=== PATIENT | female | born 1940 | race African-American/Black ===

== ENCOUNTER 2022-01-25 19:29 | Inpatient (IN) | payer MEDICARE, OTHER ==
[~2022-01-25] VITALS: Ht 167.6 cm; Wt 49.9 kg
[~2022-01-25 19:29] MED LIST: albuterol
[2022-01-25] MEDS ORDERED: SODIUM CHLORIDE 0.9% 1,000 ML IV ONE (22:00)
[2022-01-25 22:07] LABS: BASOPHILS % 0.2 % (0.0-2.0); EOSINOPHILS % 0.8 % (0.0-5.0); HEMATOCRIT. 38.9 % (36.0-48.0); HEMOGLOBIN. 12.4 g/dL (12.0-16.0); LYMPHOCYTES % 16.3 % (20.0-50.0); MEAN CORPUSCULAR HEMOGLOBIN 26.8 pg (28.0-32.0); MEAN CORPUSCULAR VOLUME 84.2 fL (81.0-99.0); MEAN PLATELET VOLUME 8.7 fl (7.4-10.4); MONOCYTES % 6.9 % (2.0-8.0); NEUTROPHILS % 75.8 % (40.0-76.0); PLATELET 199 x1000/uL (130-400); RED BLOOD CELL COUNT 4.62 mill/uL (4.2-5.4); RED CELL DISTRIBUTION WIDTH 15.7 % (11.6-14.6)
[2022-01-25 22:14] LABS: CHLORIDE 110 mEq/L (98-107)
[2022-01-25] MEDS ORDERED: POTASSIUM CHLORIDE INJ 40 MEQ in DEXT 5% WATER 250 ML IV ONE (22:30)
[2022-01-25] MEDS: KCL 20MEQ/100ML X 2 FOR TOTAL KCL 40MEQ/200ML IV SCH (23:06)
[2022-01-26] VITALS (8 sets, daily range): BP systolic 70–156; BP diastolic 37–87
[2022-01-26 01:18] LABS: CLARITY URINE CLOUDY (CLEAR); COLOR URINE YELLOW (YELLOW); KETONES URINE 1+ (NEGATIVE); LEUKOCYTE ESTERASE URINE 3+ (NEGATIVE); NITRITE URINE POSITIVE (NEGATIVE); OCCULT BLOOD URINE NEGATIVE (NEGATIVE); PROTEIN URINE TRACE (NEGATIVE); SPECIFIC GRAVITY URINE 1.025 (1.005-1.030)
[2022-01-26] MEDS: KCL 20MEQ/100ML X 2 FOR TOTAL KCL 40MEQ/200ML IV SCH (01:59)
[2022-01-26] MEDS ORDERED: MIRT-118 MT (05:26)
[2022-01-26] MEDS ORDERED: INFLUENZA VACCINE 05/PF 0.5 ML SYRINGE IM ONE (05:45)
[2022-01-26] MEDS ORDERED: DOCUSATE SODIUM 100MG CAPSULE PO PRN (07:30)
[2022-01-26] MEDS ORDERED: GUAIFENESIN 200MG/10ML SUGAR FREE UDC PO PRN (07:30)
[2022-01-26] MEDS ORDERED: MAGNESIUM/ALUMINUM HYDROXIDE/SIMETHICONE 30ML UDC PO PRN (07:30)
[2022-01-26] MEDS ORDERED: ONDANSETRON HCL 4MG/2ML INJ IV PRN (07:30)
[2022-01-26] MEDS ORDERED: CLONIDINE 0.1MG TABLET PO PRN (07:30)
[2022-01-26] MEDS ORDERED: TRAMADOL 50MG TABLET PO PRN (07:30)
[2022-01-26] MEDS ORDERED: CEFTRIAXONE 1 G PREMIX 50 ML IV SCH (07:30)
[2022-01-26] MEDS ORDERED: POTASSIUM CHLORIDE 20MEQ TABLET SR PO NR (13:15)
[2022-01-26] MEDS: HALOPERIDOL LACTATE 5MG/ML VIAL IM PRN ×2 (14:04→20:53)
[2022-01-26] MEDS: DEXT 5%/0.45% NACL KCL 10MEQ/L 1,000 ML IV SCH (14:04)
[2022-01-26] MEDS: CEFTRIAXONE 1,000 MG in DEXTROSE 5% WATER 50 ML IV SCH (14:05)
[2022-01-26] MEDS: ENOXAPARIN 40MG/0.4ML SYR SUBCUT SCH (14:52)
[2022-01-26] MEDS: ACETAMINOPHEN 325MG TABLET PO PRN (14:57)
[2022-01-26] MEDS ORDERED: NALOXONE HCL 0.4MG/ML VIAL IV PRN (21:00)
[2022-01-27 05:54] LABS: BASOPHILS % 0.2 % (0.0-2.0); EOSINOPHILS % 0.6 % (0.0-5.0); HEMATOCRIT. 43.9 % (36.0-48.0); LYMPHOCYTES % 21.8 % (20.0-50.0); MEAN CORPUSCULAR HEMOGLOBIN 26.8 pg (28.0-32.0); MEAN CORPUSCULAR VOLUME 83.9 fL (81.0-99.0); MEAN PLATELET VOLUME 9.2 fl (7.4-10.4); MONOCYTES % 7.7 % (2.0-8.0); NEUTROPHILS % 69.7 % (40.0-76.0); PLATELET 173 x1000/uL (130-400); RED BLOOD CELL COUNT 5.23 mill/uL (4.2-5.4); RED CELL DISTRIBUTION WIDTH 15.6 % (11.6-14.6)
[2022-01-27 06:31] LABS: CHLORIDE 107 mEq/L (98-107)
[2022-01-27 06:48] LABS: HDL CHOLESTEROL 74 mg/dL (40-59); LDL CHOLESTEROL 130 mg/dL (5-100)
[2022-01-27 08:00] VITALS: BP 130/68
[2022-01-27] MEDS: ENOXAPARIN 40MG/0.4ML SYR SUBCUT SCH (08:50)
[2022-01-27] MEDS: CEFTRIAXONE 1,000 MG in DEXTROSE 5% WATER 50 ML IV SCH (08:51)
[2022-01-27] MEDS: DEXT 5%/0.45% NACL KCL 10MEQ/L 1,000 ML IV SCH (11:10)
[2022-01-27] MEDS: LORAZEPAM 2MG/ML CPJ IV PRN (11:53)
[2022-01-27 11:57] VITALS: BP 132/64
[2022-01-27 16:00] VITALS: BP 130/62
[2022-01-27 20:00] VITALS: BP 135/85
[2022-01-27] MEDS: QUETIAPINE FUMARATE 25MG TABLET PO SCH (21:44)
[2022-01-28] VITALS: BP 134/76
[2022-01-28] MEDS: DEXT 5%/0.45% NACL KCL 10MEQ/L 1,000 ML IV SCH ×2 (00:40→14:07)
[2022-01-28] MEDS: LORAZEPAM 2MG/ML CPJ IV PRN (02:09)
[2022-01-28 04:00] VITALS: BP 124/81
[2022-01-28 08:00] VITALS: BP 151/78
[2022-01-28] MEDS: ENOXAPARIN 40MG/0.4ML SYR SUBCUT SCH (08:51)
[2022-01-28] MEDS: QUETIAPINE FUMARATE 25MG TABLET PO SCH ×2 (08:51→21:20)
[2022-01-28] MEDS: CEFTRIAXONE 1,000 MG in DEXTROSE 5% WATER 50 ML IV SCH (08:51)
[2022-01-28 12:00] VITALS: BP 126/82
[2022-01-28 15:59] VITALS: BP 134/73
[2022-01-28] MEDS: RIVASTIGMINE 4.6 MG/24 HR TD PATCH TD SCH (21:21)
[2022-01-29] VITALS: BP 123/71
[2022-01-29] MEDS: DEXT 5%/0.45% NACL KCL 10MEQ/L 1,000 ML IV SCH ×2 (03:39→17:18)
[2022-01-29 04:00] VITALS: BP 132/70
[2022-01-29 08:20] VITALS: BP 135/71
[2022-01-29] MEDS: QUETIAPINE FUMARATE 25MG TABLET PO SCH ×2 (09:13→20:19)
[2022-01-29] MEDS: ENOXAPARIN 40MG/0.4ML SYR SUBCUT SCH (09:13)
[2022-01-29] MEDS: CEFTRIAXONE 1,000 MG in DEXTROSE 5% WATER 50 ML IV SCH (09:13)
[2022-01-29 12:00] LABS: HEMOGLOBIN 12.1 g/dL (12.0-16.0); MEAN CORPUSCULAR VOLUME 82.5 fL (81.0-99.0); RED BLOOD CELL COUNT 4.49 mill/uL (4.2-5.4); RED CELL DISTRIBUTION WIDTH 15.2 % (11.6-14.6)
[2022-01-29 12:30] VITALS: BP 108/61
[2022-01-29 12:50] LABS: CHLORIDE 105 mEq/L (98-107)
[2022-01-29 12:57] LABS: PLATELET 116 x1000/uL (130-400)
[2022-01-29 15:30] VITALS: BP 121/43
[2022-01-29 20:02] VITALS: BP 131/55
[2022-01-29] MEDS: RIVASTIGMINE 4.6 MG/24 HR TD PATCH TD SCH (20:43)
[2022-01-30] VITALS: BP 123/55
[2022-01-30] MEDS: DEXT 5%/0.45% NACL KCL 10MEQ/L 1,000 ML IV SCH (00:09)
[2022-01-30 04:01] VITALS: BP 118/51
[2022-01-30 08:06] VITALS: BP 96/57
[2022-01-30] MEDS: CEFTRIAXONE 1,000 MG in DEXTROSE 5% WATER 50 ML IV SCH (09:30)
[2022-01-30] MEDS: ENOXAPARIN 40MG/0.4ML SYR SUBCUT SCH (09:30)
[2022-01-30] MEDS: QUETIAPINE FUMARATE 25MG TABLET PO SCH ×2 (09:30→21:15)
[2022-01-30 12:30] VITALS: BP 114/65
[2022-01-30 16:20] VITALS: BP 108/75
[2022-01-30] MEDS: LORAZEPAM 2MG/ML CPJ IV PRN (18:13)
[2022-01-30 20:01] VITALS: BP 152/69
[2022-01-30] MEDS: ATORVASTATIN CALCIUM 20MG TABLET PO SCH (21:15)
[2022-01-30] MEDS: RIVASTIGMINE 4.6 MG/24 HR TD PATCH TD SCH (21:16)
[2022-01-31 00:01] VITALS: BP 125/51
[2022-01-31 04:01] VITALS: BP 132/65
[2022-01-31 08:00] VITALS: BP 153/54
[2022-01-31] MEDS: QUETIAPINE FUMARATE 25MG TABLET PO SCH ×2 (09:02→20:40)
[2022-01-31] MEDS: CEFTRIAXONE 1,000 MG in DEXTROSE 5% WATER 50 ML IV SCH (09:02)
[2022-01-31] MEDS: ENOXAPARIN 40MG/0.4ML SYR SUBCUT SCH (09:02)
[2022-01-31 12:00] VITALS: BP 130/77
[2022-01-31 16:00] VITALS: BP 115/70
[2022-01-31 20:00] VITALS: BP 127/62
[2022-01-31] MEDS: RIVASTIGMINE 4.6 MG/24 HR TD PATCH TD SCH (20:40)
[2022-01-31] MEDS: ATORVASTATIN CALCIUM 20MG TABLET PO SCH (20:40)
[2022-02-01 00:01] VITALS: BP 106/72
[2022-02-01 04:01] VITALS: BP 120/60
[2022-02-01 08:00] VITALS: BP 117/62
[2022-02-01] MEDS: ENOXAPARIN 40MG/0.4ML SYR SUBCUT SCH (10:28)
[2022-02-01] MEDS: QUETIAPINE FUMARATE 25MG TABLET PO SCH ×2 (10:29→21:40)
[2022-02-01 12:00] VITALS: BP 107/41
[2022-02-01 16:00] VITALS: BP 136/45
[2022-02-01 20:00] VITALS: BP 120/49
[2022-02-01] MEDS: HYDROXYZINE 25MG TABLET PO SCH (21:40)
[2022-02-01] MEDS: RIVASTIGMINE 4.6 MG/24 HR TD PATCH TD SCH (21:40)
[2022-02-01] MEDS: ATORVASTATIN CALCIUM 20MG TABLET PO SCH (21:40)
[2022-02-01] MEDS: ACETAMINOPHEN 325MG TABLET PO PRN (21:57)
[2022-02-02] VITALS: BP 136/43
[2022-02-02 04:00] VITALS: BP 129/50
[2022-02-02 08:19] VITALS: BP 112/44
[2022-02-02] MEDS: QUETIAPINE FUMARATE 25MG TABLET PO SCH ×2 (08:44→20:22)
[2022-02-02] MEDS: ENOXAPARIN 40MG/0.4ML SYR SUBCUT SCH (08:45)
[2022-02-02 12:00] VITALS: BP 108/85
[2022-02-02 16:23] VITALS: BP 110/59
[2022-02-02 20:00] VITALS: BP 104/61
[2022-02-02] MEDS: ATORVASTATIN CALCIUM 20MG TABLET PO SCH (20:22)
[2022-02-02] MEDS: HYDROXYZINE 25MG TABLET PO SCH (20:22)
[2022-02-02] MEDS: RIVASTIGMINE 4.6 MG/24 HR TD PATCH TD SCH (20:22)
[2022-02-03] VITALS: BP 116/71
[2022-02-03] MEDS: ACETAMINOPHEN 325MG TABLET PO PRN ×2 (03:07→16:58)
[2022-02-03 04:00] VITALS: BP 93/55
[2022-02-03 08:15] VITALS: BP 114/46
[2022-02-03] MEDS: HYDROXYZINE 25MG TABLET PO SCH ×2 (10:14→19:10)
[2022-02-03] MEDS: QUETIAPINE FUMARATE 25MG TABLET PO SCH ×2 (10:15→21:42)
[2022-02-03] MEDS: ENOXAPARIN 40MG/0.4ML SYR SUBCUT SCH (10:16)
[2022-02-03 11:45] VITALS: BP 124/78
[2022-02-03 16:15] VITALS: BP_SYST 124; BP_SYST 127; BP_DIAS 69; BP_DIAS 78
[2022-02-03 20:00] VITALS: BP 117/56
[2022-02-03] MEDS: ATORVASTATIN CALCIUM 20MG TABLET PO SCH (21:42)
[2022-02-03] MEDS: RIVASTIGMINE 4.6 MG/24 HR TD PATCH TD SCH (21:43)
[2022-02-03] MEDS: HALOPERIDOL LACTATE 5MG/ML VIAL IM PRN (21:43)
[2022-02-04] VITALS: BP 104/51
[2022-02-04 04:00] VITALS: BP 119/55
[2022-02-04 07:03] LABS: BASOPHILS % 0.1 % (0.0-2.0); EOSINOPHILS % 1.4 % (0.0-5.0); HEMATOCRIT. 36.4 % (36.0-48.0); HEMOGLOBIN. 11.7 g/dL (12.0-16.0); LYMPHOCYTES % 24.4 % (20.0-50.0); MEAN CORPUSCULAR HEMOGLOBIN 26.3 pg (28.0-32.0); MEAN CORPUSCULAR VOLUME 81.8 fL (81.0-99.0); MEAN PLATELET VOLUME 8.3 fl (7.4-10.4); MONOCYTES % 14.2 % (2.0-8.0); NEUTROPHILS % 59.9 % (40.0-76.0); PLATELET 268 x1000/uL (130-400); RED BLOOD CELL COUNT 4.45 mill/uL (4.2-5.4); RED CELL DISTRIBUTION WIDTH 15.2 % (11.6-14.6)
[2022-02-04 07:10] LABS: CHLORIDE 102 mEq/L (98-107)
[2022-02-04 07:56] VITALS: BP 98/48
[2022-02-04] MEDS: ENOXAPARIN 40MG/0.4ML SYR SUBCUT SCH (08:30)
[2022-02-04] MEDS: HYDROXYZINE 25MG TABLET PO SCH ×2 (08:30→17:17)
[2022-02-04] MEDS: QUETIAPINE FUMARATE 25MG TABLET PO SCH ×2 (08:31→21:33)
[2022-02-04 12:12] VITALS: BP 136/74
[2022-02-04 16:18] VITALS: BP 112/56
[2022-02-04] MEDS: HALOPERIDOL LACTATE 5MG/ML VIAL IM PRN (18:38)
[2022-02-04 20:00] VITALS: BP 130/65
[2022-02-04] MEDS: ATORVASTATIN CALCIUM 20MG TABLET PO SCH (21:33)
[2022-02-04] MEDS: RIVASTIGMINE 4.6 MG/24 HR TD PATCH TD SCH (21:34)
[2022-02-05] VITALS: BP 126/60
[2022-02-05 04:00] VITALS: BP 102/57
[2022-02-05 08:05] VITALS: BP 158/74
[2022-02-05] MEDS: QUETIAPINE FUMARATE 25MG TABLET PO SCH ×2 (08:49→20:21)
[2022-02-05] MEDS: HYDROXYZINE 25MG TABLET PO SCH ×2 (08:49→16:52)
[2022-02-05] MEDS: ENOXAPARIN 40MG/0.4ML SYR SUBCUT SCH (08:49)
[2022-02-05 11:43] VITALS: BP 132/64
[2022-02-05 16:16] VITALS: BP 128/62
[2022-02-05] MEDS: HALOPERIDOL LACTATE 5MG/ML VIAL IM PRN (18:17)
[2022-02-05 20:00] VITALS: BP 110/66
[2022-02-05] MEDS: RIVASTIGMINE 4.6 MG/24 HR TD PATCH TD SCH (20:21)
[2022-02-05] MEDS: ATORVASTATIN CALCIUM 20MG TABLET PO SCH (20:21)
[2022-02-06] VITALS: BP 140/67
[2022-02-06 04:00] VITALS: BP 137/67
[2022-02-06 08:30] VITALS: BP 144/65
[2022-02-06] MEDS: QUETIAPINE FUMARATE 25MG TABLET PO SCH (08:58)
[2022-02-06] MEDS: ENOXAPARIN 40MG/0.4ML SYR SUBCUT SCH (08:59)
[2022-02-06] MEDS: HYDROXYZINE 25MG TABLET PO SCH (08:59)
[2022-02-06 11:10] VITALS: BP 136/61
[2022-02-06 12:30] VITALS: BP 113/54
== END 2022-02-06 15:50 | DRG 65 ==
LOC: ER 19:29 → 6WST 01-26 00:54 → ENRESERV 01-26 03:47
PROVIDERS: ADMIT Hospitalist; ATTEND Internal Medicine
DX: I63.9 Cerebral infarction, unspecified (principal); E44.1 Mild protein-calorie malnutrition; N39.0 Urinary tract infection, site not specified; Z68.1 Body mass index [BMI] 19.9 or less, adult; F03.90 Unspecified dementia, unspecified severity, without behavioral disturbance, psychotic disturbance, mood disturbance, and anxiety; Z20.822 Contact with and (suspected) exposure to COVID-19; E87.6 Hypokalemia; R62.7 Adult failure to thrive; R29.715 NIHSS score 15; E78.5 Hyperlipidemia, unspecified; Z78.1 Physical restraint status; Z88.8 Allergy status to other drugs, medicaments and biological substances
CPT/HCPCS: 36415; 70551; 71045; 80048; 80053; 80061; 81003; 83735; 83880; 84132; 84484; 85025; 85027; 87077; 87186; 87426; 90686; 93005; 93306; 93880; 93970; 97162; 97166; 99285; A6261; C1893; J0696; J1630; J1650; J2060; J3480; J7030; J7060